=== PATIENT | female | born 1950 | race Caucasian/White ===

== ENCOUNTER 2018-03-22 09:14 | Outpatient (CLI) | payer MEDICARE, BC | END 2018-03-22 09:15 | disposition home or self-care (01) | LOC: BICMAMMO 09:14 | PROVIDERS: ATTEND Obstetrics & Gynecology | DX: Z12.31 Encounter for screening mammogram for malignant neoplasm of breast (principal) | CPT/HCPCS: 77063; 77067 ==

== ENCOUNTER 2018-06-08 09:39 | Outpatient (CLI) | payer MEDICARE, BC ==
--- NOTE | 2018-06-08 13:16 | MRI ---
BRAIN MRI WITH AND WITHOUT CONTRAST: Date: 06-08-18 Comparison: None. History: Senile degeneration of brain. Technique: Multiplanar, multisequence MR imaging of the brain is provided with and without contrast. FINDINGS: The axial diffusion weighted imaging demonstrates no evidence for acute infarction. There is no evidence for intracranial hemorrhage on the axial gradient echo imaging. Imaged paranasal sinuses/mastoid air cells appear grossly unremarkable. Arterial flow voids at axial level of skull base appear grossly unremarkable on the T2 weighted imagi ng. There is no midline shift or mass effect. There is no ventricular enlargement. There are a few scattered subcentimeter foci of increased T2 and FLAIR signal within the periventricu lar white matter as well as within the subcortical white matter of both frontal lobes suggesting a mi ld degree of small vessel disease. Regional bone marrow signal intensity appears grossly unremarkable. Post contrast imaging demonstrates no abnormal enhancement within the brain parenchyma. IMPRESSION: Mild small vessel disease suspected. No acute findings. POS: [facility]
== END 2018-06-08 09:40 | disposition home or self-care (01) ==
LOC: SCSMRI 09:39
PROVIDERS: ATTEND Psychiatry & Neurology Neurology
DX: G31.1 Senile degeneration of brain, not elsewhere classified (principal)
CPT/HCPCS: 70553; 82565

== ENCOUNTER 2019-03-23 09:47 | Outpatient (CLI) | payer MEDICARE, BC ==
--- NOTE | 2019-03-23 11:15 | MMO ---
Bilateral MAMMO Bilat Screen [facility]. CLINICAL HISTORY: Patient is 68 years old and is seen for screening. The patient has no family history of breast cancer. The patient has no personal history of cancer. VIEWS: The views performed were: bilateral craniocaudal with tomosynthesis and bilateral mediolateral oblique with tomosynthesis. FILMS COMPARED: The present examination has been compared to prior imaging studies performed at [facility] on 03/22/2018, and at [facility] on 03/18/2015, 03/18/2016 and 03/21/2017. This study has been interpreted with the assistance of computer-aided detection. MAMMOGRAM FINDINGS: There are scattered fibroglandular densities. There are benign appearing and vascular calcifications seen in both breasts. There are no suspicious masses, suspicious calcifications, or new areas of architectural distortion. IMPRESSION: THERE IS NO MAMMOGRAPHIC EVIDENCE OF MALIGNANCY. A ROUTINE FOLLOW-UP MAMMOGRAM IN 1 YEAR IS RECOMMENDED. THE RESULTS OF THIS EXAM WERE SENT TO THE PATIENT. ACR BI-RADS Category 2 - Benign finding MAMMOGRAPHY NOTE: 1. A negative mammogram report should not delay a biopsy if a dominant of clinically suspicious mass is present. 2. Approximately 10% to 15% of breast cancers are not detected by mammography. 3. Adenosis and dense breasts may obscure an underlying neoplasm. Reported by: YANA ROCHA MD Electonically Signed: [id number]
== END 2019-03-23 09:48 | disposition home or self-care (01) ==
LOC: BICMAMMO 09:47
PROVIDERS: ATTEND Nurse Practitioner Family
DX: Z12.31 Encounter for screening mammogram for malignant neoplasm of breast (principal)
CPT/HCPCS: 77063; 77067

== ENCOUNTER 2020-03-24 09:14 | Outpatient (CLI) | payer MEDICARE, BC ==
--- NOTE | 2020-03-24 09:36 | MMO ---
Bilateral MAMMO Bilat Screen [facility]. CLINICAL HISTORY: Patient is 69 years old and is seen for screening. The patient has no family history of breast cancer. The patient has no personal history of cancer. VIEWS: The views performed were: bilateral craniocaudal with tomosynthesis and bilateral mediolateral oblique with tomosynthesis. FILMS COMPARED: The present examination has been compared to prior imaging studies performed at [facility] on 03/22/2018 and 03/23/2019, and at [facility] on 03/18/2016 and 03/21/2017. This study has been interpreted with the assistance of computer-aided detection. MAMMOGRAM FINDINGS: There are scattered fibroglandular densities. Benign calcifications are noted bilaterally. There are no suspicious masses, suspicious calcifications, or new areas of architectural distortion. IMPRESSION: THERE IS NO MAMMOGRAPHIC EVIDENCE OF MALIGNANCY. A ROUTINE FOLLOW-UP MAMMOGRAM IN 1 YEAR IS RECOMMENDED. THE RESULTS OF THIS EXAM WERE SENT TO THE PATIENT. ACR BI-RADS Category 2 - Benign finding MAMMOGRAPHY NOTE: 1. A negative mammogram report should not delay a biopsy if a dominant of clinically suspicious mass is present. 2. Approximately 10% to 15% of breast cancers are not detected by mammography. 3. Adenosis and dense breasts may obscure an underlying neoplasm. Reported by: ALVARO TALAVERA MD Electonically Signed: [id number]
== END 2020-03-24 09:15 | disposition home or self-care (01) ==
LOC: BICMAMMO 09:14
PROVIDERS: ATTEND Nurse Practitioner Family
DX: Z12.31 Encounter for screening mammogram for malignant neoplasm of breast (principal)
CPT/HCPCS: 77063; 77067

== ENCOUNTER 2021-03-26 09:43 | Outpatient (CLI) | payer MEDICARE, BC | END 2021-03-26 09:44 | disposition home or self-care (01) | LOC: BICMAMMO 09:43 | PROVIDERS: ATTEND Nurse Practitioner Family | DX: Z12.31 Encounter for screening mammogram for malignant neoplasm of breast (principal) | CPT/HCPCS: 77063; 77067 ==

== ENCOUNTER 2022-03-30 10:08 | Outpatient (CLI) | payer MEDICARE, BC | END 2022-03-30 10:09 | disposition home or self-care (01) | LOC: BICMAMMO 10:08 | PROVIDERS: ATTEND Nurse Practitioner Family | DX: Z12.31 Encounter for screening mammogram for malignant neoplasm of breast (principal) | CPT/HCPCS: 77063; 77067 ==